=== PATIENT | male | born 1965 | race Caucasian/White ===

== ENCOUNTER 2017-02-03 11:48 | Emergency (ER) | payer OTHER ==
[2017-02-03 12:00] VITALS: BP 137/73; PULSE 85; TEMP 98.2
--- NOTE | 2017-02-03 12:16 | PDOC ---
History of Present Illness - General Chief Complaint: Wheezing Stated Complaint: Wheezing,chest tightness Time Seen by Provider: 02/03/17 12:15 History Source: Patient Exam Limitations: No Limitations - History of Present Illness Initial Comments: 02/03/17 12:44 51M with remote past medical history of asthma and allergies presents with complain of wheezing that wakes him up at night for the past few days. Went to his pmd yesterday who found him with clear lungs and prescribed him with albuterol and claritin. Runs and works out daily with no chest pain, SOB or dyspnea. Denies coughing, sneezing. 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, left eye - Suicide/Smoking/Psychosocial Hx Smoking Status: No Smoking History: Never smoked Have you smoked in the past 12 months: No Number of Cigarettes Smoked Daily: 0 Information on smoking cessation initiated: No Hx Alcohol Use: No Drug/Substance Use Hx: No Substance Use Type: None Review of Systems - Review of Systems Able to Perform ROS?: Yes Constitutional: No: Symptoms Reported HEENTM: No: Symptoms Reported Respiratory: Yes: See HPI Cardiac (ROS): No: Symptoms Reported ABD/GI: No: Symptoms Reported : No: Symptoms Reported Musculoskeletal: No: Symptoms Reported Integumentary: No: Symptoms Reported Neurological: No: Symptoms reported Endocrine: No: Symptoms Reported Hematologic/Lymphatic: No: Symptoms Reported All Other Systems: Reviewed and Negative *Physical Exam - Vital Signs Last Vital Signs Temp Pulse Resp BP Pulse Ox 98.2 F 85 19 137/73 98 02/03/17 11:57 02/03/17 11:57 02/03/17 11:57 02/03/17 11:57 02/03/17 11:57 - Physical Exam General Appearance: Yes: Nourished, Appropriately Dressed. No: Apparent Distress HEENT: positive: EOMI, BARBIE, Normal ENT Inspection Neck: negative: Tender Respiratory/Chest: positive: Lungs Clear, Normal Breath Sounds. negative: Chest Tender, Wheezing Cardiovascular: positive: Regular Rhythm, Regular Rate, S1, S2 Gastrointestinal/Abdominal: positive: Normal Bowel Sounds, Flat, Soft. negative : Tender Medical Decision Making - Medical Decision Making 02/03/17 13:00 51M present to the Ed with complaint of nocturnal wheezing for the past few days. Asymptomatic here. Will discharge with 4 days course of prednisone. *DC/Admit/Observation/Transfer Diagnosis at time of Disposition: Reactive airway disease - Discharge Dispostion Disposition: HOME Admit: No - Prescriptions Prescriptions: Prednisone [Prednisone 50 MG TABLETS] 50 mg PO DAILY #4 tablet - Referrals - Patient Instructions Printed Discharge Instructions: DI for Reactive Airway Disease-Adult Additional Instructions: 1 tablet of prednisone a day for 4 days. Follow up with your primary physician within 1 week Come back to Emergency department for any new, worsening or concerning symptoms. - Post Discharge Activity
--- NOTE | 2017-02-03 12:32 | PDOC ---
Attending Attestation - Resident Resident Name: Nando Pierce - ED Attending Attestation I have performed the following: I have examined & evaluated the patient, The case was reviewed & discussed with the resident, I agree w/resident's findings & plan, Exceptions are as noted - HPI HPI: 02/03/17 12:29 51yo M with no sig PMH p/w wheezing at night x 1 week. Pt reports that he hears wheezing for 3 hours every night with no associated SOB, CP. Reports some nasal congestion and sensation of dripping down his throat. Reports similar symptoms years ago when he was heavier that resolved with steroids. Has never been diagnosed with asthma. Saw PMD yesterday who cleared him and told him it was allergies and prescribed an albuterol pump. Pt has not used the albuterol as it makes him jittery. Denies f/c. He reports he jogs almost every morning, he did not jog today because he had breakfast plans. While at breakfast, he reports feeling the wheezing again and thus decided to come to the ED to see if we can catch it. Wheezing resolved on the way to the ED. Denies CP, headache, weakness, numbness, abd pain, N/V/D, LE edema, recent travel or immobilization - Physicial Exam PE: 02/03/17 12:43 GENERAL: Awake, alert, and fully oriented, in no acute distress HEAD: No signs of trauma EYES: PERRLA, EOMI, sclera anicteric, conjunctiva clear ENT: Auricles normal inspection, hearing grossly normal, nares patent, oropharynx clear without exudates. Moist mucosa NECK: Normal ROM, supple, no lymphadenopathy, JVD, or masses LUNGS: Breath sounds equal, clear to auscultation bilaterally. No wheezes, and no crackles HEART: Regular rate and rhythm, normal S1 and S2, no murmurs, rubs or gallops ABDOMEN: Soft, nontender, normoactive bowel sounds. No guarding, no rebound. No masses EXTREMITIES: Normal range of motion, no edema. No clubbing or cyanosis. No cords, erythema, or tenderness NEUROLOGICAL: Normal speech, cranial nerves intact, negative pronator drift, 5/ 5 strength in all 4 extremities, normal sensation to light touch in all 4 extremities, normal cerebellar exam, normal gait, normal reflexes and tone SKIN: Warm, Dry, normal turgor, no rashes or lesions noted. - Medical Decision Making 02/03/17 12:45 51-year-old male history of wheezing presents with 3 hours nightly wheezing for the last week. Vitals including oxygen saturation are within normal limits. On exam, the patient is very comfortable appearing, in no distress, and with clear lungs and no wheezing. It's possible his symptoms are mild reactive airway disease versus allergies versus a viral syndrome. Patient has been encouraged to use his albuterol pump and will be given a short course of steroids. We also advised him to use Claritin given the nasal congestion in case the symptoms are results of allergies. I discussed the physical exam findings, ancillary test results and final diagnoses with the patient. I answered all of the patient's questions. The patient was satisfied with the care received and felt comfortable with the discharge plan and treatment plan. The patient will call their primary care physician within 24 hours to arrange follow-up and will return to the Emergency Department with any new, persistent or worsening symptoms. Heart Score/ECG Review #1 02/03/17 12:44 Twelve-lead EKG was performed and reviewed by me. Normal sinus rhythm, rate 78. Normal axis and intervals. No ST elevations.
== END 2017-02-03 12:54 | disposition home or self-care (01) ==
LOC: JER 11:48
DX: J45.909 Unspecified asthma, uncomplicated (principal); E78.00 Pure hypercholesterolemia, unspecified; H54.40 Blindness, one eye, unspecified eye
CPT/HCPCS: 99281-25

== ENCOUNTER 2017-05-09 17:03 | Emergency (ER) | payer OTHER ==
[2017-05-09 17:42] VITALS: BP 146/89; TEMP 99.8; BMI 30.5
[2017-05-09] MEDS ORDERED: ACETAMINOPHEN 500 MG TABLET (FP) PO ONE (17:42)
--- NOTE | 2017-05-09 17:42 | PDOC ---
Rapid Medical Evaluation Time Seen by Provider: 05/09/17 17:38 Medical Evaluation: Allergies Allergy/AdvReac Type Severity Reaction Status Date / Time No Known Allergies Allergy Verified 05/09/17 17:38 05/09/17 17:38 pt c/o: chills, cough, body aches, subjective fever Pt on brief exam: lcta,,, 99.8, hr 110 Pt ordered for : tylenol 975mg given in ed pt to proceed to the ED: Discharge Disposition - Diagnosis Cough - Referrals - Patient Instructions - Post Discharge Activity
[2017-05-09] MEDS ORDERED: ACETAMINOPHEN 325 MG TABLET (FP) ONE (18:02)
[2017-05-09 19:12] VITALS: PULSE 90
--- NOTE | 2017-05-09 19:53 | PDOC ---
History of Present Illness - General Chief Complaint: Shortness of Breath Stated Complaint: SHORTNESS OF BREATH Time Seen by Provider: 05/09/17 17:38 History Source: Patient Exam Limitations: No Limitations - History of Present Illness Initial Comments: 05/09/17 19:48 Patient is a [52-year-old male denies any significant medical history reports 2 days ago seen his primary care doctor given prednisone for wheezing at 4:30 this a.m. developed fever, generalized body aches, headache, coughing which has been intermittently productive. Tylenol given in triage. Patient reports "my body feels like burning inside" any chest pain, or shortness of breath.] Allergies: No known allergies Medications: [None] Family History: Non-contributory Social History: Denies smoking, alcohol use, or IVDU Vital signs on arrival are [notable for temperature of 99.8] Review of Systems GENERAL/CONSTITUTIONAL: [Fever and generalized aches.. No weakness. No weight change.] HEAD, EYES, EARS, NOSE AND THROAT: [No change in vision. No ear pain or discharge. No sore throat. ] CARDIOVASCULAR: [No chest pain or shortness of breath.] RESPIRATORY: [No cough, wheezing, or hemoptysis.] GASTROINTESTINAL: [No nausea, vomiting, diarrhea or constipation. No rectal bleeding.] GENITOURINARY: [No dysuria, frequency, or change in urination.] MUSCULOSKELETAL: [No joint or muscle swelling or pain. No neck or back pain.] SKIN AND BREASTS: [No rash or easy bruising.] NEUROLOGIC: [No headache, vertigo, loss of consciousness, or loss of sensation.] PSYCHIATRIC: [No depression or anxiety.] ENDOCRINE: [No increased thirst. No abnormal weight change.] HEMATOLOGIC/LYMPHATIC: [No anemia, easy bleeding, or history of blood clots.] ALLERGIC/IMMUNOLOGIC: [No hives or skin allergy. No latex allergy.] Physical Exam: GENERAL: [The patient is awake, alert, and fully oriented, in no acute distress. ] EYES: [Pupils equal, round and reactive to light on the right, left eyelid easily blind, extraocular movements intact, sclera anicteric, conjunctiva clear. ] ENT: [Ears normal, nares patent, oropharynx clear without exudates. Moist mucous membranes. No uvula deviation] NECK: [Normal range of motion, supple without lymphadenopathy, JVD, or masses.] LUNGS: [Breath sounds equal, clear to auscultation bilaterally. Expiratory wheezes with no crackles] HEART: [Regular rate and rhythm, normal S1 and S2 without murmur, rub or gallop. ] ABDOMEN: [Soft, nontender, normoactive bowel sounds. No guarding, no rebound. No masses. No bruising or abrasions] MUSCULOSKELETAL: [Normal range of motion, no edema. No clubbing or cyanosis. No cords, erythema, or tenderness. No CVA Tenderness with fist.] NEUROLOGICAL: [Cranial nerves II through XII grossly intact. Normal speech, normal gait.] SKIN: [Warm, Dry, normal turgor, no rashes or lesions noted.] 05/09/17 19:49 05/09/17 19:54 Past History - Past Medical History Allergies/Adverse Reactions: Allergies Allergy/AdvReac Type Severity Reaction Status Date / Time No Known Allergies Allergy Verified 05/09/17 17:38 Home Medications: Ambulatory Orders Atorvastatin Ca [Lipitor] 10 mg PO HS 02/03/17 Prednisone [Prednisone 50 MG TABLETS] 50 mg PO DAILY #4 tablet 02/03/17 Azithromycin [Zithromax 250mg Tablets -] 250 mg PO UTDICT #6 tab 05/09/17 Oseltamivir Phosphate [Tamiflu -] 75 mg PO BID #10 capsule 05/09/17 COPD: No DVT: No Dementia: No Hypercholesterolemia: Yes - Immunization History Immunization Up to Date: Yes - Suicide/Smoking/Psychosocial Hx Smoking Status: No Smoking History: Never smoked Have you smoked in the past 12 months: No Number of Cigarettes Smoked Daily: 0 Information on smoking cessation initiated: No Hx Alcohol Use: No Drug/Substance Use Hx: No Substance Use Type: None *Physical Exam - Vital Signs Last Vital Signs Temp Pulse Resp BP Pulse Ox 99.8 F H 90 18 146/89 96 05/09/17 17:39 05/09/17 19:12 05/09/17 17:39 05/09/17 17:39 05/09/17 19:12 ED Treatment Course - Medications Given in the ED: ED Medications Discontinued Medications Generic Name Dose Route Start Last Admin Trade Name Freq PRN Reason Stop Dose Admin Acetaminophen 975 mg 05/09/17 17:42 05/09/17 18:04 Tylenol - PO 05/09/17 17:43 975 mg ONCE ONE Administration Medical Decision Making - Medical Decision Making 05/09/17 19:49 A/P: Patient with upper respiratory symptoms as well as influenza-type illness, sudden onset with fever. Will DC on azithromycin and Tamiflu. I discussed the physical exam findings, ancillary test results and final diagnoses with the patient. I answered all of the patient's questions. The patient was satisfied with the care received and felt comfortable with the discharge plan and treatment plan. The patient will call to arrange follow-up and will return to the Emergency Department with any new, persistent or worsening symptoms. *DC/Admit/Observation/Transfer Diagnosis at time of Disposition: Cough, Influenza-like illness - Discharge Dispostion Disposition: HOME Condition at time of disposition: Stable Admit: No - Prescriptions Prescriptions: Azithromycin [Zithromax 250mg Tablets -] 250 mg PO UTDICT #6 tab Oseltamivir Phosphate [Tamiflu -] 75 mg PO BID #10 capsule - Referrals Referrals: Rajiv Machuca MD [Primary Care Provider] - - Patient Instructions Additional Instructions: You have been diagnosed with influenza-like illness. Please take the medication as directed. You are contagious. Please attempt to avoid contact of multiple individuals as this will cause the infection to spread. Return to emergency room if shortness of breath, wheezing, fever greater than 101, chest pain, or fainting occurs. Please make sure to stay well-hydrated, Motrin and alternate with Tylenol every 3-4 hours as needed for fever. - Post Discharge Activity Forms/Work/School Notes: Back to Work
== END 2017-05-09 20:08 | disposition home or self-care (01) ==
LOC: JERFT 17:03
DX: J11.1 Influenza due to unidentified influenza virus with other respiratory manifestations (principal)
CPT/HCPCS: 99281-25

== ENCOUNTER 2017-08-19 16:40 | Emergency (ER) | payer OTHER ==
[2017-08-19 16:52] VITALS: BP 140/94; PULSE 70; TEMP 98; BMI 29.7
[2017-08-19] MEDS ORDERED: ALBUTEROL SO4 2.5/IPRATROPIUM 0.5 INH SOL 3 ML VIAL.NEB. NEB ONE ×3 (17:48→17:57)
[2017-08-19] MEDS ORDERED: DEXAMETHASONE SOD PHOSPHATE 10 MG/1 ML VIAL IM ONE (17:48)
[2017-08-19] MEDS ORDERED: DEXAMETHASONE SOD PHOSPHATE 10 MG/1 ML VIAL ONE (17:53)
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
== END 2017-08-19 18:22 | disposition home or self-care (01) ==
LOC: JERFT 16:40
PROC: 3E0F7GC Introduction of Other Therapeutic Substance into Respiratory Tract, Via Natural or Artificial Opening (ICD-10-PCS; principal; 2017-08-19)
PROC: 3E0233Z Introduction of Anti-inflammatory into Muscle, Percutaneous Approach (ICD-10-PCS; 2017-08-19)
DX: J06.9 Acute upper respiratory infection, unspecified (principal); B97.89 Other viral agents as the cause of diseases classified elsewhere; E78.00 Pure hypercholesterolemia, unspecified
CPT/HCPCS: 94640; 96372; 99281-25; J1100; J7620

== ENCOUNTER 2018-04-25 08:18 | Emergency (ER) | payer OTHER ==
[2018-04-25 08:25] VITALS: BP 125/82; PULSE 77; TEMP 97.3; BMI 30.5
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
== END 2018-04-25 08:49 | disposition home or self-care (01) ==
LOC: JERFT 08:18
DX: S16.1XXA Strain of muscle, fascia and tendon at neck level, initial encounter (principal); V43.62XA Car passenger injured in collision with other type car in traffic accident, initial encounter; Y93.89 Activity, other specified; Y92.410 Unspecified street and highway as the place of occurrence of the external cause; E78.00 Pure hypercholesterolemia, unspecified
CPT/HCPCS: 99281-25

== ENCOUNTER 2021-04-10 14:18 | Emergency (ER) | payer OTHER ==
[2021-04-10 14:43] VITALS: TEMP 97.9; BMI 30.5
[2021-04-10] MEDS ORDERED: ASPIRIN 81 MG CHEWABLE TABLETS PO ONE (15:19)
[2021-04-10] MEDS ORDERED: ASPIRIN 81 MG CHEWABLE TABLETS ONE (15:34)
[2021-04-10 16:38] LABS: BASO % 0.5 % (0-2.0); EOS % 1.6 % (0-4.5); HEMATOCRIT 44.8 % (35.4-49); HEMOGLOBIN 15.2 GM/dL (11.7-16.9); LYMPH % 27.5 % (8-40); MCH 31.4 pg (25.7-33.7); MEAN CELL VOLUME 92.5 fl (80-96); MEAN PLT VOLUME 8.8 fl (7.5-11.1); MONO % 9.7 % (3.8-10.2); NEUT % 60.7 % (42.8-82.8); PLATELET COUNT 211 10^3/uL (134-434); RBC 4.84 M/mm3 (4.00-5.60); RDW 12.9 % (11.9-15.9); WHITE BLOOD COUNT 6.8 K/mm3 (4.0-10.0)
[2021-04-10 17:09] LABS: CHLORIDE 106 mmol/L (98-107); SODIUM 142 mmol/L (136-145)
[2021-04-10 17:11] LABS: ALBUMIN 3.5 g/dl (3.4-5.0); CALCIUM 9.2 mg/dL (8.5-10.1)
[2021-04-10 17:12] LABS: ANION GAP 6 MMOL/L (8-16); BLOOD UREA NITROGEN 15.8 mg/dL (7-18); CO2 30 mmol/L (21-32); GLUCOSE,RANDOM 92 mg/dL (74-106)
[2021-04-10 17:14] LABS: SGOT/AST 26 U/L (15-37); SGPT/ALT 35 U/L (13-61)
[2021-04-10 17:16] LABS: BILIRUBIN,TOTAL 0.6 mg/dL (0.2-1); TOT PROT 6.5 g/dl (6.4-8.2)
[2021-04-10 17:18] LABS: ALK PHOS 71 U/L (45-117)
[2021-04-10 20:10] VITALS: BP 146/92; PULSE 75
== END 2021-04-10 20:10 | disposition home or self-care (01) ==
LOC: JER 14:18
DX: R07.9 Chest pain, unspecified (principal)
CPT/HCPCS: 36415; 71046-TC-FY; 80053; 82550; 82553; 84484; 85025; 93005; 93010; 99285-25; C9803; U0003; U0005

== ENCOUNTER 2022-08-26 13:12 | Emergency (ER) | payer OTHER ==
[2022-08-26 13:29] VITALS: BP 151/81; PULSE 77; RESP 18; TEMP 98.2
[2022-08-26] MEDS ORDERED: IBUPROFEN 600 MG TABLET (FP) PO ONE ×2 (13:52→13:56)
[2022-08-26] MEDS ORDERED: ACETAMINOPHEN 500 MG TABLET (FP) PO ONE (13:52)
[2022-08-26] MEDS ORDERED: ACETAMINOPHEN 500 MG TABLET (FP) ONE (13:56)
== END 2022-08-26 14:40 | disposition home or self-care (01) ==
LOC: JER 13:12 → JERFT 13:12
DX: M54.50 Low back pain, unspecified (principal); M25.561 Pain in right knee; V49.50XA Passenger injured in collision with unspecified motor vehicles in traffic accident, initial encounter
CPT/HCPCS: 72100-TC-FY; 73562-TC-RT-FY; 99284-25